=== PATIENT | female | born 1975 | race Caucasian/White ===

== ENCOUNTER 2018-12-17 06:34 | Day surgery (SDC) | payer OTHER ==
[~2018-12-17] VITALS: Ht 157.5 cm; Wt 73.0 kg
[~2018-12-17 06:34] MED LIST: SODIUM CHLORIDE 0.9% 1,000 ML IV ONE
[2018-12-17] MEDS ORDERED: LIDOCAINE 4% 50 ML SOLUTION TP ONE (06:35)
[2018-12-17] MEDS ORDERED: BENZOCAINE 20% 50 MCG/SPRAY 57 GM TP ONE (06:35)
[2018-12-17] MEDS ORDERED: LIDOCAINE 2% 5 ML JELLY TP ONE (06:35)
[2018-12-17] MEDS ORDERED: ALBU8HFA IH (07:22)
[2018-12-17] MEDS ORDERED: LEVO50 PO (07:22)
[2018-12-17] MEDS ORDERED: MONT10TA21 PO (07:22)
[2018-12-17] MEDS ORDERED: MECL-138 PO (07:22)
[2018-12-17] MEDS ORDERED: TOPI25 PO (07:22)
[2018-12-17] MEDS ORDERED: FLUT16H NASAL (07:22)
[2018-12-17] MEDS ORDERED: BECL10.62 IH (07:22)
[2018-12-17] MEDS ORDERED: ESCI10TA PO (07:22)
[2018-12-17] MEDS ORDERED: GABA-531 PO (07:22)
[2018-12-17] MEDS ORDERED: OMEP20 PO (07:22)
[2018-12-17] MEDS ORDERED: FentaNYL CITRATE-PF 100 MCG/2 ML VIAL ONE (08:08)
[2018-12-17] MEDS ORDERED: MIDAZOLAM HCL 2 MG/2 ML VIAL ONE (08:08)
[2018-12-17] MEDS ORDERED: MethylPREDNISolone SOD SUCC 125 MG/2 ML VIAL IVP ONE (09:00)
[2018-12-17] MEDS ORDERED: MethylPREDNISolone SOD SUCC 125 MG/2 ML VIAL ONE (09:32)
[2018-12-17] MEDS ORDERED: OXYGEN THERAPY IH SCH (20:00)
== END 2018-12-17 10:35 | disposition home or self-care (01) ==
LOC: SURGERY 06:34
PROVIDERS: ATTEND Internal Medicine Critical Care Medicine
DX: J38.4 Edema of larynx (principal); B37.0 Candidal stomatitis; J45.909 Unspecified asthma, uncomplicated; J98.8 Other specified respiratory disorders; I10 Essential (primary) hypertension; K76.0 Fatty (change of) liver, not elsewhere classified; M19.90 Unspecified osteoarthritis, unspecified site; Z87.442 Personal history of urinary calculi; Z79.899 Other long term (current) drug therapy; Z79.01 Long term (current) use of anticoagulants; Z98.890 Other specified postprocedural states
CPT/HCPCS: 31623; 31624; 71045; 84703; 87070; 87101; 87205; 87206; 87220; 88108; 88312; J2250; J2930; J3010; J7030; 87015

== ENCOUNTER 2021-05-24 05:20 | Day surgery (SDC) | payer OTHER ==
[~2021-05-24] VITALS: Ht 157.5 cm; Wt 76.4 kg
[~2021-05-24 05:20] MED LIST changes: +ALBU8HFA IH; +BECL10.62 IH; +ESCI-8 PO; +FLUT16H NASAL; +GABA-1181 PO; +LEVO50 PO; +MECL-138 PO; +MONT-35 PO; +OMEP20 PO; -SODIUM CHLORIDE 0.9% 1,000 ML IV ONE; +TOPI25 PO
[2021-05-24] MEDS ORDERED: LIDOCAINE 2% 30 ML JELLY TP ONE (05:21)
[2021-05-24] MEDS ORDERED: LIDOCAINE 4% 50 ML SOLUTION TP ONE (05:21)
[2021-05-24] MEDS ORDERED: ACETYLCYSTEINE 10% 100 MG/ML 30 ML ORAL SOLUTION PO ONE (05:21)
[2021-05-24] MEDS ORDERED: BENZOCAINE 20% 50 MCG/SPRAY 57 GM TP ONE (05:21)
[2021-05-24] MEDS ORDERED: SODIUM CHLORIDE 0.9% 1,000 ML IV ONE (06:30)
[2021-05-24 06:41] LABS: COVID AG,FIA SOURCE NASOPHARYNGEAL
[2021-05-24] MEDS ORDERED: SODIUM CHLORIDE 0.9% 1,000 ML ONE (07:05)
[2021-05-24] MEDS ORDERED: FentaNYL CITRATE PF 100 MCG/2 ML VIAL ONE (07:21)
[2021-05-24] MEDS ORDERED: MIDAZOLAM HCL 5 MG/ML VIAL ONE (07:22)
[2021-05-24] MEDS ORDERED: MethylPREDNISolone SOD SUCC 125 MG/2 ML VIAL IVP ONE (09:15)
[2021-05-24] MEDS ORDERED: MethylPREDNISolone SOD SUCC 125 MG/2 ML VIAL ONE (10:10)
[2021-05-24] MEDS ORDERED: OXYGEN THERAPY IH SCH (20:00)
== END 2021-05-24 12:15 | disposition home or self-care (01) ==
LOC: SURGERY 05:20
PROVIDERS: ATTEND Internal Medicine Critical Care Medicine
DX: J38.4 Edema of larynx (principal); B37.0 Candidal stomatitis; J98.09 Other diseases of bronchus, not elsewhere classified; Z79.899 Other long term (current) drug therapy; Z98.890 Other specified postprocedural states
CPT/HCPCS: 31623; 31624; 71045; 87015; 87070; 87101; 87206; 87220; 87426; 88184; 88185; C9803; J2250; J2930; J3010; J7030; 88112; 88312; Z7610